=== PATIENT | female | born 1970 | race Caucasian/White ===

== ENCOUNTER 2019-10-16 18:12 | Emergency (ER) | payer MEDICAID, OTHER ==
[~2019-10-16] VITALS: Ht 170.2 cm; Wt 102.0 kg
[2019-10-16 18:15] VITALS: BP 159/78
[2019-10-16] MEDS ORDERED: IBUPROFEN 600MG TABLET PO ONE (21:30)
== END 2019-10-16 21:34 | disposition home or self-care (01) ==
LOC: ER 18:12
DX: S09.8XXA Other specified injuries of head, initial encounter (principal); W01.198A Fall on same level from slipping, tripping and stumbling with subsequent striking against other object, initial encounter; Y93.89 Activity, other specified; Y92.031 Bathroom in apartment as the place of occurrence of the external cause
CPT/HCPCS: 99284

== ENCOUNTER 2021-09-10 04:52 | Emergency (ER) | payer OTHER ==
[~2021-09-10] VITALS: Ht 160 cm; Wt 104.0 kg
[2021-09-10] MEDS ORDERED: LORAZEPAM 2MG/ML CPJ IV ONE (05:15)
[2021-09-10 05:43] LABS: BASOPHILS % 0.6 % (0.0-2.0); EOSINOPHILS % 7.4 % (0.0-5.0); HEMATOCRIT. 37.9 % (36.0-48.0); HEMOGLOBIN. 12.3 g/dL (12.0-16.0); LYMPHOCYTES % 46.6 % (20.0-50.0); MEAN CORPUSCULAR HEMOGLOBIN 26.3 pg (28.0-32.0); MEAN CORPUSCULAR VOLUME 81.5 fL (81.0-99.0); MEAN PLATELET VOLUME 8.4 fl (7.4-10.4); MONOCYTES % 7.2 % (2.0-8.0); NEUTROPHILS % 38.2 % (40.0-76.0); PLATELET 206 x1000/uL (130-400); RED BLOOD CELL COUNT 4.65 mill/uL (4.2-5.4); RED CELL DISTRIBUTION WIDTH 14.5 % (11.6-14.6)
[2021-09-10] MEDS ORDERED: SODIUM CHLORIDE 0.9% 1,000 ML IV ONE (05:45)
[2021-09-10] MEDS ORDERED: LEVETIRACETAM 500MG/5ML CUP PO ONE (05:45)
[2021-09-10 05:49] LABS: CHLORIDE 106 mEq/L (98-107)
[2021-09-10 05:53] LABS: ETHANOL BLOOD < 10 mg/dL
[2021-09-10 06:05] LABS: CLARITY URINE CLEAR (CLEAR); COLOR URINE YELLOW (YELLOW); KETONES URINE NEGATIVE (NEGATIVE); LEUKOCYTE ESTERASE URINE NEGATIVE (NEGATIVE); NITRITE URINE NEGATIVE (NEGATIVE); OCCULT BLOOD URINE NEGATIVE (NEGATIVE); PH URINE 5.5 (4.5-8.0); PROTEIN URINE 1+ (NEGATIVE); UROBILINOGEN URINE 0.2 E.U./dL (0.2-1.0)
[2021-09-10 06:18] LABS: *COCAINE SCREEN URINE NEGATIVE (NEGATIVE); CANNABINOID URINE SCREEN PRESUMTIVE POSITIVE (NEGATIVE); METHADONE URINE SCREEN NEGATIVE (NEGATIVE); OPIATES URINE SCREEN NEGATIVE (NEGATIVE); PHENCYCLIDINE URINE SCREEN NEGATIVE (NEGATIVE)
[2021-09-10 06:19] LABS: *AMPHETAMINES SCREEN URINE NEGATIVE (NEGATIVE); *BARBITURATES SCREEN URINE NEGATIVE (NEGATIVE); *BENZODIAZEPINES SCREEN URINE PRESUMTIVE POSITIVE (NEGATIVE)
[2021-09-10] MEDS ORDERED: KEPP500 MT (08:24)
[2021-09-10] MEDS ORDERED: ACETAMINOPHEN 325MG TABLET PO ONE (08:30)
[2021-09-10 09:18] VITALS: BP 112/78
== END 2021-09-10 09:19 | disposition home or self-care (01) ==
LOC: ER 04:52 → EDUNIT# 04:52 → ER 09:19
DX: G40.909 Epilepsy, unspecified, not intractable, without status epilepticus (principal); Z91.14 Patient's other noncompliance with medication regimen; S00.512A Abrasion of oral cavity, initial encounter; X58.XXXA Exposure to other specified factors, initial encounter; Y93.89 Activity, other specified; Y92.89 Other specified places as the place of occurrence of the external cause
CPT/HCPCS: 36415; 71045; 80053; 80305; 80320; 81003; 85025; 93005; 96360; 96361; 99285; J7030; G0480

== ENCOUNTER 2021-10-25 21:57 | Emergency (ER) | payer MEDICAID, OTHER ==
[~2021-10-25] VITALS: Ht 170.2 cm; Wt 106.0 kg
[~2021-10-25 21:57] MED LIST: KEPP500 MT
[2021-10-25 22:11] VITALS: BP 109/70
[2021-10-25] MEDS ORDERED: ACETAMINOPHEN 500MG TABLET PO ONE (22:45)
[2021-10-25] MEDS ORDERED: T3 PO (23:46)
[2021-10-25] MEDS ORDERED: IBUP-2030 MT (23:46)
== END 2021-10-26 00:27 | disposition home or self-care (01) ==
LOC: ER 21:57
DX: S82.892A Other fracture of left lower leg, initial encounter for closed fracture (principal); X58.XXXA Exposure to other specified factors, initial encounter; Y93.89 Activity, other specified; Y92.89 Other specified places as the place of occurrence of the external cause; Y99.8 Other external cause status; J45.909 Unspecified asthma, uncomplicated; E11.9 Type 2 diabetes mellitus without complications; F12.10 Cannabis abuse, uncomplicated
CPT/HCPCS: 73610; 73630; 81025; 99284

== ENCOUNTER 2022-03-20 11:10 | Emergency (ER) | payer MEDICAID, OTHER ==
[~2022-03-20] VITALS: Ht 165.1 cm; Wt 91.0 kg
[~2022-03-20 11:10] MED LIST changes: +IBUP-2030 MT; +T3 PO
[2022-03-20 11:30] VITALS: BP 149/59
== END 2022-03-20 11:58 | disposition home or self-care (01) ==
LOC: ER 11:10
DX: S80.12XA Contusion of left lower leg, initial encounter (principal); X58.XXXA Exposure to other specified factors, initial encounter; Y93.89 Activity, other specified; Y92.89 Other specified places as the place of occurrence of the external cause; Y99.8 Other external cause status; J45.909 Unspecified asthma, uncomplicated; E11.9 Type 2 diabetes mellitus without complications; F12.10 Cannabis abuse, uncomplicated
CPT/HCPCS: 99281

== ENCOUNTER 2024-11-19 00:48 | Emergency (ER) | payer MEDICAID, OTHER ==
[~2024-11-19] VITALS: Ht 165.1 cm; Wt 73.0 kg
[2024-11-19 01:13] VITALS: O2SAT 98
[2024-11-19] MEDS: LEVETIRACETAM 1000MG PREMIX 100 ML IV ONE (02:04)
[2024-11-19] MEDS: SODIUM CHLORIDE 0.9% 1,000 ML IV ONE (02:05)
[2024-11-19] MEDS: MORPHINE SULFATE 4 MG/ML INJ (FOR IV/IM USE) IV ONE (03:22)
[2024-11-19 05:02] LABS: CLARITY URINE CLEAR (CLEAR); COLOR URINE YELLOW (YELLOW); GLUCOSE URINE NEGATIVE (NEGATIVE); KETONES URINE TRACE (NEGATIVE); LEUKOCYTE ESTERASE URINE NEGATIVE (NEGATIVE); NITRITE URINE NEGATIVE (NEGATIVE); OCCULT BLOOD URINE NEGATIVE (NEGATIVE); PROTEIN URINE 1+ (NEGATIVE); SPECIFIC GRAVITY URINE 1.016 (1.005-1.030)
[2024-11-19 05:12] LABS: BASOPHILS % 0.5 % (0.0-2.0); EOSINOPHILS % 0.1 % (0.0-5.0); HEMATOCRIT. 37.7 % (36.0-48.0); HEMOGLOBIN. 12.2 g/dL (12.0-16.0); LYMPHOCYTES % 23.4 % (20.0-50.0); MEAN CORPUSCULAR HGB CONC 32.5 g/dL (31.0-37.0); MEAN PLATELET VOLUME 9.4 fl (7.4-10.4); MONOCYTES % 8.1 % (2.0-8.0); NEUTROPHILS % 67.9 % (40.0-76.0); PLATELET 141 x1000/uL (130-400); RED BLOOD CELL COUNT 4.54 mill/uL (4.2-5.4); WHITE BLOOD COUNT 2.8 x1000/uL (4.5-11.0)
[2024-11-19 05:18] LABS: CARBON DIOXIDE 29 mEq/L (21-32); CHLORIDE 107 mEq/L (98-107); POTASSIUM 3.9 mEq/L (3.5-5.1); SODIUM 142 mEq/L (136-145)
[2024-11-19 05:19] LABS: CALCIUM 9.4 mg/dL (8.7-10.4)
[2024-11-19 05:24] LABS: *AMPHETAMINES SCREEN URINE NEGATIVE (NEGATIVE); *BARBITURATES SCREEN URINE NEGATIVE (NEGATIVE); *BENZODIAZEPINES SCREEN URINE NEGATIVE (NEGATIVE); *COCAINE SCREEN URINE NEGATIVE (NEGATIVE); CANNABINOID URINE SCREEN PRESUMPTIVE POSITIVE (NEGATIVE); ECSTASY MDMA SCREEN URINE NEGATIVE (NEGATIVE); METHADONE URINE SCREEN NEGATIVE (NEGATIVE); OPIATES URINE SCREEN PRESUMPTIVE POSITIVE (NEGATIVE); PHENCYCLIDINE URINE SCREEN NEGATIVE (NEGATIVE)
[2024-11-19 05:24] LABS: CREATININE 0.6 mg/dL (0.6-1.0); GLUCOSE 122 mg/dL (70-105); UREA NITROGEN BLOOD 9 mg/dL (9-23)
[2024-11-19 05:40] LABS: ETHANOL BLOOD < 10 mg/dL (<10)
[2024-11-19 06:28] VITALS: BP 131/66; PULSE 71; RESP 18; TEMP 36.94740; O2SAT 100
[2024-11-19 07:20] LABS: SQUAMOUS EPITHELIAL CELL URINE 1+ /lpf (RARE/1+)
[2024-11-19 07:21] LABS: MUCUS URINE TRACE /lpf (< = 2+)
[2024-11-19 07:22] LABS: BACTERIA URINE TRACE; RBC URINE NONE SEEN /hpf (0-2); WBC URINE 0-2 /hpf (0-2)
== END 2024-11-19 06:34 | disposition home or self-care (01) ==
LOC: ER 00:48
DX: G40.909 Epilepsy, unspecified, not intractable, without status epilepticus (principal); F17.200 Nicotine dependence, unspecified, uncomplicated; J45.909 Unspecified asthma, uncomplicated; E11.9 Type 2 diabetes mellitus without complications; I10 Essential (primary) hypertension; F12.10 Cannabis abuse, uncomplicated; Z91.148 Patient's other noncompliance with medication regimen for other reason
CPT/HCPCS: 80305; 80048; 81003; 80320; 85025; 36415; 93005; 96365; 96375; 99284; J1953; J2270; J7030; Z7610 ×2; G0480

== ENCOUNTER 2025-01-20 12:54 | Emergency (ER) | payer OTHER ==
[~2025-01-20] VITALS: Ht 167.6 cm; Wt 84.0 kg
[2025-01-20 12:56] VITALS: O2SAT 98
[2025-01-20] MEDS: LEVETIRACETAM 1000MG PREMIX 100 ML IV ONE (13:26)
[2025-01-20 13:44] LABS: CHLORIDE 105 mEq/L (98-107); SODIUM 141 mEq/L (136-145)
[2025-01-20 13:45] LABS: BASOPHILS % 0.3 % (0.0-2.0); CARBON DIOXIDE 25 mEq/L (21-32); EOSINOPHILS % 0.4 % (0.0-5.0); HEMATOCRIT. 43.2 % (36.0-48.0); HEMOGLOBIN. 13.7 g/dL (12.0-16.0); LYMPHOCYTES % 8.2 % (20.0-50.0); MEAN CORPUSCULAR HEMOGLOBIN 26.2 pg (28.0-32.0); MEAN CORPUSCULAR HGB CONC 31.9 g/dL (31.0-37.0); MEAN CORPUSCULAR VOLUME 82.2 fL (81.0-99.0); MEAN PLATELET VOLUME 8.8 fl (7.4-10.4); MONOCYTES % 2.5 % (2.0-8.0); NEUTROPHILS % 88.6 % (40.0-76.0); PLATELET 233 x1000/uL (130-400); RED BLOOD CELL COUNT 5.25 mill/uL (4.2-5.4); RED CELL DISTRIBUTION WIDTH 15.3 % (11.6-14.6); WHITE BLOOD COUNT 11.2 x1000/uL (4.5-11.0)
[2025-01-20 13:46] LABS: CALCIUM 9.4 mg/dL (8.7-10.4)
[2025-01-20 13:50] LABS: CREATININE 0.7 mg/dL (0.6-1.0); GLUCOSE 137 mg/dL (70-105); UREA NITROGEN BLOOD 15 mg/dL (9-23)
[2025-01-20] MEDS: ACETAMINOPHEN 500MG TABLET PO ONE (17:11)
[2025-01-20 19:24] VITALS: TEMP 36.6
[2025-01-20 23:01] VITALS: BP 101/55; PULSE 85; RESP 20; O2SAT 93
== END 2025-01-20 23:30 | disposition short-term general hospital (02) ==
LOC: ER 12:56 → CANBEDREQ 19:54 → ER 23:30
DX: R56.9 Unspecified convulsions (principal); E11.9 Type 2 diabetes mellitus without complications; I10 Essential (primary) hypertension; F12.90 Cannabis use, unspecified, uncomplicated; J45.909 Unspecified asthma, uncomplicated; Z79.899 Other long term (current) drug therapy
CPT/HCPCS: 80048; 85025; 36415; 70450; 96365; 99285; J1953; Z7610 ×2; 99282; A4606

== ENCOUNTER 2025-11-16 14:04 | Emergency (ER) | payer OTHER ==
[~2025-11-16] VITALS: Ht 167.6 cm; Wt 100.0 kg
[2025-11-16 14:14] VITALS: O2SAT 100
[2025-11-16] MEDS: ACETAMINOPHEN 325MG TABLET PO ONE (15:54)
[2025-11-16] MEDS ORDERED: ACET-2708 MT (16:10)
[2025-11-16 16:16] VITALS: BP 114/69; PULSE 84; RESP 18; TEMP 36.9; O2SAT 98
== END 2025-11-16 16:28 | disposition home or self-care (01) ==
LOC: ER 14:10 → CMPBEDREQ 11-17 08:30
DX: S00.03XA Contusion of scalp, initial encounter (principal); J45.909 Unspecified asthma, uncomplicated; I10 Essential (primary) hypertension; E11.9 Type 2 diabetes mellitus without complications; W18.30XA Fall on same level, unspecified, initial encounter; Y93.89 Activity, other specified; Y92.89 Other specified places as the place of occurrence of the external cause; Y99.8 Other external cause status
CPT/HCPCS: 99284